=== PATIENT | male | born 1945 | race Caucasian/White ===

== ENCOUNTER 2024-09-13 15:39 | Outpatient (CLI) | payer MEDICARE ==
[~2024-09-13 15:39] MED LIST: HYDR-3686 PO; LANS30CA37 PO; LORA-512 PO; LOSA-416 PO; PARO20TA6 PO
== END 2024-09-13 23:59 | disposition home or self-care (01) ==
LOC: RAD 15:39
PROVIDERS: ATTEND Podiatrist Foot & Ankle Surgery
DX: M19.072 Primary osteoarthritis, left ankle and foot (principal); M77.32 Calcaneal spur, left foot; G57.42 Lesion of medial popliteal nerve, left lower limb; M79.672 Pain in left foot
CPT/HCPCS: 73700